=== PATIENT | female | born 1990 | race Caucasian/White ===

== ENCOUNTER → 2016-11-28 | Outpatient (CLI) | payer MEDICAID ==
[~2016-11-28] MED LIST: IRON65 PO; PERCOCET 5-3251 EACH PO; PRENATAL 1+1)(P1 TAB PO; ZANTAC300 MG PO
== END | disposition disaster alternative care site (69) ==
LOC: LFPA 12:00
DX: Z34.82 Encounter for supervision of other normal pregnancy, second trimester (principal)

== ENCOUNTER 2016-12-28 14:08 | Inpatient (IN) | payer MEDICAID ==
[~2016-12-28] VITALS: Ht 171.4 cm; Wt 83.5 kg
--- NOTE | ~2016-12-28 | OR ---
PATIENT'S NAME: DAX GALVEZ [facility] AGE: 26 Y [address] ROOM: [place] [id number] LOCATION: [facility] ADMIT DATE: 12/28/2016 OR/Procedure Report DISCHARGE DATE: FAMILY PHYSICIAN: Siobhan Guzman MD ATTENDING PHYSICIAN: Siobhan Guzman SURGEON: Jonathan Poe MD CLINICAL SCIENCES PROFESSOR: DATE OF PROCEDURE: 12/28/2016 PREOPERATIVE DIAGNOSES: 1. A 39-week intrauterine . 2. Spontaneous rupture of membranes with moderate meconium. POSTOPERATIVE DIAGNOSES: 1. A 39-week intrauterine . 2. Spontaneous rupture of membranes with moderate meconium. 3. Delivered. PROCEDURE PERFORMED: 1. Epidural anesthesia. 2. Spontaneous vaginal delivery. ANESTHESIA: Epidural. FINDINGS: The patient is a 26-year-old, 1, para 1, who presented to labor and delivery in the latent phase of the first stage of labor. Delivered is a viable 8-pound 7-ounce female with score of 8 at 1 minute and 9 at 5 minutes. Also delivered is an intact 3-vessel placenta. DESCRIPTION OF PROCEDURE: The patient presented to labor and delivery in the latent phase of the first stage of labor measuring approximately 4 cm. An epidural was placed. Shortly thereafter, the patient had spontaneous rupture of membranes with moderate meconium. The patient progressed to complete at about 6 p.m. and she was placed in the dorsal lithotomy position and prepped and draped in the typical fashion. After approximately 3 pushes, there was spontaneous delivery of the vertex in a left occiput anterior position. Subsequently, the remainder of the infant was delivered and the cord clamped, cut, and cord blood obtained. The was placed in the mother's lap for her care. After approximately 15 minutes, there was spontaneous delivery of an intact 3-vessel placenta. Inspection of the vaginal vault revealed the cervix to be intact. Two small periurethral tears were noted and not bleeding, and therefore, not sewn. The perineum itself was intact. Both the patient and the mother remained in the delivery room in satisfactory condition. [facility] 26 Y [address] ROOM: [place] [id number] LOCATION: [facility] ADMIT DATE: 12/28/2016 OR/Procedure Report DISCHARGE DATE: FAMILY PHYSICIAN: Siobhan Guzman MD ATTENDING PHYSICIAN: Siobhan Guzman ESTIMATED BLOOD LOSS: 150 mL. MD MIKE DUMONTH/modl /[id number] d: 12/28/162331 t: 01/20/17 1112, OPERATIVE SUMMARY
[~2016-12-28 14:08] MED LIST changes: -PERCOCET 5-3251 EACH PO
[2016-12-28 15:52] LABS: BASOPHIL # 0.1 K/uL (0.0-0.2); BASOPHIL % 0.4 %; EOSINOPHIL # 0.1 K/uL (0.0-0.5); EOSINOPHIL % 0.7 %; HEMATOCRIT 38.7 % (33.0-46.0); HEMOGLOBIN 13.5 g/dL (11.0-15.0); IMMATURE GRANULOCYTE # 0.1 K/uL (0.0-0.3); IMMATURE GRANULOCYTE % 0.7 %; LYMPHOCYTE # 2.3 K/uL (0.8-4.0); MCH 31.7 pg (27.0-34.0); MCHC 34.9 gm/dL (32.0-36.5); MCV 90.8 fl (83.0-98.0); MONOCYTE # 1.1 K/uL (0.0-1.0); MONOCYTE % 7.7 %; MPV 11.2 fl (9.4-12.4); NEUTROPHIL % 73.5 %; NRBC % 0 /100WBC (0-0.00); PLATELET COUNT 227 K/uL (150-450); RBC 4.26 M/uL (3.50-5.00); RDW-CV 12.6 % (11.9-14.6); WBC 13.6 K/uL (4.0-11.0)
[2016-12-29 04:59] LABS: BASOPHIL # 0.1 K/uL (0.0-0.2); BASOPHIL % 0.4 %; EOSINOPHIL # 0.2 K/uL (0.0-0.5); EOSINOPHIL % 1.4 %; HEMATOCRIT 32.5 % (33.0-46.0); HEMOGLOBIN 11.3 g/dL (11.0-15.0); IMMATURE GRANULOCYTE # 0.1 K/uL (0.0-0.3); IMMATURE GRANULOCYTE % 0.7 %; LYMPHOCYTE # 3.6 K/uL (0.8-4.0); LYMPHOCYTE % 21.8 %; MCH 31.6 pg (27.0-34.0); MCHC 34.8 gm/dL (32.0-36.5); MCV 90.8 fl (83.0-98.0); MONOCYTE # 1.5 K/uL (0.0-1.0); MONOCYTE % 9.3 %; MPV 10.9 fl (9.4-12.4); NEUTROPHIL # (ANC) 10.9 K/uL (1.8-7.8); NEUTROPHIL % 66.4 %; NRBC % 0 /100WBC (0-0.00); PLATELET COUNT 192 K/uL (150-450); RBC 3.58 M/uL (3.50-5.00); RDW-CV 12.5 % (11.9-14.6)
[2016-12-29 05:04] LABS: WBC 16.4 K/uL (4.0-11.0)
--- NOTE | 2016-12-29 05:14 | NUR ---
VSS, independent with cares, last had motrin at 2240 and Percocet at 0215
--- NOTE | 2016-12-29 17:37 | NUR ---
Last VS: T:98.4 P:71 R: 16 BP: 127/74 Pain ratin. Last pain med: Motrin Medicated at: 1554 Effective: Sleeping Breasts/Nipples: tender-using lanolin & APNO Fundus: firm/midline Lochia: small Epis/Perineum: intact/tender Voiding well: yes Significant event: *.up ad danny. independent with cares. lots of company today. Percocet last @ 1315. Planning discharge tomorrow. certificate & paternity papers @ bedside.
--- NOTE | 2016-12-30 05:14 | NUR ---
VSS. FUNDUS FIRM AND MIDLINE. 2PERCOCET AT 0000. PT HAD JACUZZI BATH LAST NIGHT. VIDEOS WATCHED. RETURN BATH DONE. NEEDS CERT. TURNED IN AND PATERNITY PAPERS NEED SIGNED. MMR GIVEN. HOME TODAY.
[2016-12-30] MEDS ORDERED: PERCOCET 5-3251 EACH PO (12:57)
--- NOTE | 2016-12-30 17:44 | NUR ---
Last VS: T:98.1 P:64 R: 14 BP: 129/63 Pain rating: . Last pain med: percocet/motrin at 1454 Medicated at: Effective: Breasts: , Nipples: Fundus: firm and 2 fingers down Lochia:small flow Epis/Perineum:bottom looks good. Voiding well: yes Significant event: . planning home tonight. has script for pain and certificate. dismissal papers typed and ready for dismissal.
== END 2016-12-30 20:00 | disposition disaster alternative care site (69) | DRG 775 ==
LOC: GOBS 14:08 → GOBM 14:08 → GOBS 14:09 → GOBM 14:10 → GOBS 17:36 → GOBM 01-01 12:46
PROVIDERS: Family Medicine; ADMIT Family Medicine
DX: O77.0 Labor and delivery complicated by meconium in amniotic fluid (principal); Z23 Encounter for immunization; Z91.040 Latex allergy status; Z3A.39 39 weeks gestation of pregnancy; Z37.0 Single live birth
CPT/HCPCS: J2590; J3010; J7120